=== PATIENT | female | born 1940 | race Caucasian/White ===

== ENCOUNTER 2017-10-20 02:29 | Observation (INO) | payer OTHER ==
[~2017-10-20] VITALS: Ht 152.4 cm; Wt 73.5 kg
[2017-10-20 03:37] LABS: HEMATOCRIT 37.4 % (36.0-46.0); HEMOGLOBIN 12.4 G/DL (11.9-15.5); MCH 29.5 PG (29.0-34.0); MCHC 33.2 G/DL (30.0-36.0); PLATELET COUNT 328 K/uL (156-360); RBC DIS.WIDTH-CV 12.7 % (11.8-14.6); RBC DIS.WIDTH-SD 41.4 % (39-53); WHITE BLOOD COUNT 9.9 K/uL (4.1-10.2)
[2017-10-20 03:48] LABS: ALBUMIN 4.1 g/dL (3.2-4.8); CHLORIDE 102 mEq/L (99-109); POTASSIUM 4.5 mEq/L (3.7-5.4); SODIUM 139 mEq/L (136-147)
[2017-10-20 03:50] LABS: GLUCOSE 113 mg/dL (70-99)
[2017-10-20 03:51] LABS: TOTAL PROTEIN 6.5 g/dL (6.4-8.3)
[2017-10-20 03:52] LABS: TOTAL BILIRUBIN 0.6 mg/dL (0.0-1.0)
[2017-10-20 03:54] LABS: ALKALINE PHOSPHATASE 107 IU/L (3-129); CREATININE 1.3 mg/dL (0.6-1.3); GFR ESTIMATE (CALCULATED) 42 mL/min/
[2017-10-20 03:55] LABS: UREA NITROGEN (BUN) 19 mg/dL (9-23)
[2017-10-20 03:56] LABS: AST (GOT) 14 IU/L (2-34)
[2017-10-20 03:57] LABS: ALT (GPT) 13 IU/L (3-49)
[2017-10-20 03:59] LABS: TROP-I INTERPRETATION NEGATIVE; TROPONIN-I 0.02 ng/mL (0.0-0.30)
[2017-10-20 04:08] LABS: APPEARANCE CLEAR ((CLEAR)); BILIRUBIN NEGATIVE; BLOOD MODERATE; COLOR STRAW ((YELLOW)); GLUCOSE (STRIP) NEGATIVE; KETONES NEGATIVE; LEUKOCYTES MODERATE; NITRITE NEGATIVE; PROTEIN (STRIP) NEGATIVE; SPECIFIC GRAVITY 1.013 (1.000-1.030); UROBILINOGEN 0.2 MG/DL (0.2-1.0)
[2017-10-20 04:37] LABS: BACTERIA NONE SEEN /HPF; EPITHELIAL CELLS RARE /HPF; MUCUS TRACE /LPF; UCUL ADDED? YES
[2017-10-20 07:17] VITALS: BP 174/84
[2017-10-20] MEDS ORDERED: CATAPRES0.2 MG PO (08:43)
[2017-10-20] MEDS ORDERED: PLAVIX75 MG PO (08:43)
[2017-10-20] MEDS ORDERED: ALDACTAZIDE 251 EACH PO ×2 (08:44→14:14)
[2017-10-20] MEDS ORDERED: ADULT ASPIRIN81 MG PO (08:44)
[2017-10-20] MEDS ORDERED: LISINOPRIL20 MG PO ×3 (08:45→18:08)
[2017-10-20] MEDS ORDERED: PANTOPRAZOLE SO40 MG PO (08:47)
[2017-10-20] MEDS ORDERED: LOPRESSOR50 MG PO (08:47)
[2017-10-20] MEDS ORDERED: PRAVACHOL40 MG PO (08:48)
[2017-10-20] MEDS ORDERED: VITRON-C TABLE1 EACH PO ×2 (08:50→14:17)
[2017-10-20 10:12] LABS: TROP-I INTERPRETATION NEGATIVE; TROPONIN-I 0.02 ng/mL (0.0-0.30)
[2017-10-20] MEDS ORDERED: CEFTIN500 MG PO ×2 (11:36→18:10)
[2017-10-20 11:43] VITALS: BP 194/81
[2017-10-20 14:07] VITALS: BP 174/87
[2017-10-20] MEDS ORDERED: VITAMIN D5000 UNI1 PO (14:18)
[2017-10-20 15:04] LABS: TROP-I INTERPRETATION NEGATIVE; TROPONIN-I 0.03 ng/mL (0.0-0.30)
[2017-10-20 15:47] VITALS: BP 184/81
[2017-10-20 17:16] VITALS: BP 175/82
== END 2017-10-20 18:22 | disposition home or self-care (01) ==
LOC: EME 02:29 → EDOF 05:40 → ENRESERV 05:49 → 4SOUTH 07:14 → ENPENDDIS 15:16 → 4SOUTH 18:22
PROVIDERS: Internal Medicine; Physician Assistant
DX: R53.83 Other fatigue (principal); N39.0 Urinary tract infection, site not specified; I25.10 Atherosclerotic heart disease of native coronary artery without angina pectoris; Z95.5 Presence of coronary angioplasty implant and graft; I10 Essential (primary) hypertension; I25.2 Old myocardial infarction; E78.5 Hyperlipidemia, unspecified; R94.31 Abnormal electrocardiogram [ECG] [EKG]; Z82.49 Family history of ischemic heart disease and other diseases of the circulatory system; Z79.82 Long term (current) use of aspirin; Z82.3 Family history of stroke
CPT/HCPCS: 71045; 80053; 81003; 83605; 84484; 85027; 87040; 87086; 93005; 99281; 99285; G0378; J0696; J1644; J7040